=== PATIENT | male | born 1980 | race Caucasian/White ===

== ENCOUNTER 2016-05-28 11:31 | Emergency (ER) | payer SELFPAY ==
[~2016-05-28 11:31] MED LIST: BACTRIM DS TABL1 TAB PO; BACTRIM DS1 TAB PO; BACTRIM1 TAB PO; DICLOFENAC POTA50 M1 PO; DORYX100 MG PO; HYDROCODONE; KEFLEX500 M1 PO; KEFLEX500 MG PO; NIX59 ML TP; NORCO 5/325 TAB1 TAB PO; OXYCODONE/APAP PO; OXYCONTIN20 M1 PO; PREDNISONE20 MG PO; SILVADENE20 GM TP; SULFAMYLON SOL250 ML EXT; SULFAMYLON453.6 GM TP; ULTRAM50 MG PO; VICODIN 5/500 T1 TAB PO; ZITHROMAX250 M1 PO
[2016-05-28] MEDS ORDERED: NORCO 5-325 TA1 EACH PO (15:44)
[2016-05-28] MEDS ORDERED: CYCLOBENZAPRINE5 M1 PO (15:44)
[2016-10-27] MEDS ORDERED: CYCLOBENZAPRINE5 M1 PO (18:44)
== END 2016-05-28 15:55 ==
LOC: EDMED 11:31
DX: M54.5 Low back pain (principal); Z88.5 Allergy status to narcotic agent; F17.210 Nicotine dependence, cigarettes, uncomplicated
CPT/HCPCS: J1170; J2405